=== PATIENT | female | born 1980 | race American Indian/Alaskan Native ===

== ENCOUNTER 2017-09-02 13:06 | Outpatient (CLI) | payer OTHER ==
--- NOTE | 2017-09-02 16:43 | Mammography Report ---
BILATERAL DIGITAL SCREENING MAMMOGRAM with CAD: 09/02/17 13:06:00 CLINICAL: Baseline screening. FINDINGS: The breasts are heterogeneously dense, which may obscure small masses. Left asymmetries require additional imaging.No architectural distortion or suspicious calcifications.The right breast is negative. IMPRESSION: Left asymmetries requiring further workup. BI-RADS CATEGORY: 0 -- Additional Imaging Evaluation Required RECOMMENDATION: Recall for left , spot compression CC and MLO views and left breast ultrasound if needed. ACR BI-RADS MAMMOGRAPHIC CODES: 0 = Needs additional imaging evaluation; 1 = Negative; 2 = Benign; 3 = Probably benign; 4 = Suspicious; 5 = Malignant; 6 = Known biopsy-proven malignancy COMMENT: 1. Dense breast tissue, i.e., adenosis, fibrocystic changes, etc., may obscure an underlying neoplasm. 2. Approximately 10% of cancers are not detected with mammography. 3. A negative mammography report should not delay biopsy if a clinically suspicious mass is present. COMMENT: Patient follow-up letters are generated via our [employer] application.
== END 2017-09-02 13:07 | disposition home or self-care (01) ==
LOC: MAMMO 13:06
PROVIDERS: ATTEND Advanced Practice Midwife
DX: Z12.31 Encounter for screening mammogram for malignant neoplasm of breast (principal)
CPT/HCPCS: 77067

== ENCOUNTER 2018-07-24 04:40 | Outpatient (CLI) | payer MEDICAID ==
[2018-07-24] MEDS ORDERED: LACTATED RINGERS 1,000 ML IV ONE (04:42)
[2018-07-24] MEDS ORDERED: AMPICILLIN/NS 2 GM/100 ML 2 GM/100 ML BAG IV ONE (05:16)
[2018-07-24 05:28] LABS: Bacteria,Urine 1+ /HPF (Negative); Bilirubin,Urine NEG (Negative); Blood,Urine NEG (Negative); Color,Urine Straw (Yellow); Mucus,Urine FEW /HPF; Protein,Urine <15 mg/dL mg/dL (Negative); RBC,Urine < 1.0 /HPF (0.0-6.0); Urobilinogen,Urine < 2.0 mg/dL (<2.0); WBC,Urine < 1.0 /HPF (0.0-6.0)
--- NOTE | 2018-07-24 05:43 | History and Physical Report ---
History of Present Illness Date of examination: 07/24/18 Date of admission: 07/24/2018 Chief complaint: 37 yr at 30wks gestation with 4 prior sections. 3rd was an IUFD [associated with nuchal cord]. She was here today and complaining frequent urination x3days and "burning" across the suprapubis x1day. History of present illness: 37 yr at 30wks gestation with 4 prior sections. 3rd was an IUFD [associated with nuchal cord]. She was here today and complaining frequent urination x3days and "burning" across the suprapubis x1day. Past History Past Surgical History: section - Obstetrical History Expected Date of Delivery: 10/02/18 Actual Gestation: 30 Week(s) 0 Day(s) : 5 Para: 4 Number of Pregnancies: 1 (IUFD at 32wks.) Number of Living Children: 3 Medications and Allergies Allergies Allergy/AdvReac Type Severity Reaction Status Date / Time No Known Allergies Allergy Verified 05/10/15 12:13 Home Medications Medication Instructions Recorded Confirmed Last Taken Type Tablet 1 tab PO DAILY 04/24/15 06/10/15 1 Day Ago History ~06/09/15 Ibuprofen [Motrin] 800 mg PO Q8HR PRN #30 tablet 06/10/15 Unknown Rx Lidocain2.5%/Prilocai2.5% [Emla] 1 applic TP ONCE #1 tube 06/10/15 Unknown Rx oxyCODONE /ACETAMINOPHEN [Percocet 2 tab PO Q4HR PRN #30 tab 06/10/15 Unknown Rx 5/325] Active Meds: Active Medications Betamethasone Acet/Betameth SodPhos (Celestone Soluspan) 12 mg IM Q24HR EMMIE Lactated Ringer's (Lactated Ringers) 1,000 mls @ 999 mls/hr IV BOLUS ONE Stop: 07/24/18 05:42 Ampicillin Sodium (Ampicillin/Ns 2 Gm/100 Ml) 2 gm in 100 mls @ 100 mls/hr IV ONCE ONE; Protocol Stop: 07/24/18 06:15 Sodium Chloride (Nacl 0.9% 1000 Ml) 1,000 mls @ 125 mls/hr IV DIRECT EMMIE Review of Systems All systems: negative Gastrointestinal: abdominal pain Genitourinary: pelvic pain, other (urinary frequency and lower back pains.) Musculoskeletal: leg numbness/tingling (has difficulty moving th her left thigh at the hip joint.), other - Vital Signs Vital signs: Vital Signs Pulse BP Pulse Ox 93 H 107/59 99 07/24/18 04:58 07/24/18 04:58 07/24/18 04:58 Temp Pulse Resp BP Pulse Ox 98.0 F 86 18 107/59 98 07/24/18 04:59 07/24/18 05:33 07/24/18 04:59 07/24/18 04:58 07/24/18 05:33 - Physical Exam Breasts: Positive: deferred Cardiovascular: Regular rate Lungs: Positive: Clear to auscultation Abdomen: Positive: normal appearance, soft, distention Uterus: Positive: enlarged, normal contour. Negative: tender - Obstetrical FHR: category 1 Uterine Contraction Pattern: Absent Results All other labs normal. Ultrasound: pending Assessment and Plan IMP: at 30 wks. 4 previous sections. Abdominal pains. Diff Dx; UTI, r/o abruption, kidney stones. Wound dehiscence. Plan: Admit for observations and work up. - Patient Problems (1) Previous delivery affecting , antepartum Current Visit: Yes Status: Acute (2) Abdominal pain affecting Current Visit: Yes Status: Acute (3) Abdominal pain affecting , antepartum Current Visit: Yes Status: Acute
[2018-07-24] MEDS ORDERED: NACL 0.9% 1000 ML 1,000 ML IV SCH (06:00)
[2018-07-24] MEDS: CELESTONE SOLUSPAN IM SCH (06:24)
[2018-07-24 06:37] LABS: Hematocrit 27.5 % (30.3-42.9); Hemoglobin 9.3 gm/dl (10.1-14.3); Mean Corpuscular HGB Conc 34 % (30-34); Mean Corpuscular Volume 78 fl (79-97); Platelet Count 151 K/mm3 (140-440); Red Blood Count 3.51 M/mm3 (3.65-5.03); Red Cell Distribution Width 15.3 % (13.2-15.2)
--- NOTE | 2018-07-24 08:20 | Ultrasound Report ---
PROCEDURE: US OB FOLLOW UP TECHNIQUE: Limited obstetrical ultrasound performed. HISTORY: Lower abdomen pain COMPARISON: None FINDINGS: presentation: Cephalic Placental location: Anterior. Placenta previa?No Amniotic fluid volume:Normal. TALIB: 21 cm heart rate: 137 bpm measurements: BPD: 7.6 cm-30 weeks 4 days +/- 22 days HC: 27.9 cm-30 weeks 4 days +/- 21 days AC: 27.3 cm-31 weeks 3 days +/- 21 days FL: 5.6 cm-20 weeks 2 days +/- 15 days HC/AC ratio 1.02 (1.05-1.22) Average age by ultrasound: 30 weeks 3 days with corresponding SASKIA of 09/29/2018 Gestational age by provided LMP/SASKIA (12/28/2017/10/12/2018): 28 weeks 4 days Estimated weight: 1602 g +/- 2 137 g Survey of anatomy: Not performed. Cervical length is 5 cm IMPRESSION: There is a single live intrauterine . By provided dates, gestational age is 28 weeks 4 days with SASKIA of 10/12/2018. Measurements are within 2 standard deviations. Abdominal measurement at the up per end of normal.. Current measurements as above corresponding to 30 weeks 3 days and SASKIA of 09/30/19 19. Borderline polyhydramnios with TALIB of 21 cm. Subjectively, the amount amniotic fluid does not appear abnormally large. No evidence of placental abruption or other significant finding. This document is electronically signed by Willow Meeks MD., July 24 2018 08:18:29 AM ET
--- NOTE | 2018-07-24 09:39 | Ultrasound Report ---
PROCEDURE: US OB BPP WO NON-STRESS TECHNIQUE: biophysical profile performed. HISTORY: LEFT LOWER ABDOMEN PAIN COMPARISON: None FINDINGS: There is a single live intrauterine of approximately 20 weeks 4 days according to provided SASKIA of 10/12/2018. position is cephalic. The placenta is anterior. Amniotic fluid volume is borderline increased.. TALIB is 21 cm. Biophysical profile tone: 2 Amniotic fluid: 2 breathin movements: 2 Biophysical profile score:8 out of 8 IMPRESSION: Normal biophysical profile scoring 8 out of 8. Borderline increased amniotic fluid. TALIB is 21 cm. This document is electronically signed by Willow Meeks MD., July 24 2018 09:37:36 AM ET
--- NOTE | 2018-07-24 10:31 | Ultrasound Report ---
PROCEDURE: US RENAL BILAT TECHNIQUE: Renal ultrasound HISTORY: LEFT LOWER ABDOMEN PAIN; R/O KIDNEY STONES COMPARISON: None FINDINGS: The right kidney measures 11.0 x 4.9 x 4.7 cm. Left kidney measures 11.9 x 5.6 x 6.1 cm. There is no hydronephrosis seen. There is no focal mass seen. No calculi identified sonographically. IMPRESSION: There is no significant abnormality identified. This document is electronically signed by Willow Meeks MD., July 24 2018 10:29:41 AM ET
[2018-07-24] MEDS ORDERED: LACTATED RINGERS 1,000 ML ONE (10:54)
[2018-07-24] MEDS: AMPICILLIN/NS 1 GM/50 ML 1 GM/50 ML BAG IV SCH ×3 (11:01→23:00)
[2018-07-24 15:32] LABS: Basophils % (Auto) 0.1 % (0.0-1.8); Hemoglobin 9.3 gm/dl (10.1-14.3); Lymphocytes # (Auto) 1.2 K/mm3 (1.2-5.4); Lymphocytes % (Auto) 12.9 % (13.4-35.0); Mean Corpuscular HGB Conc 33 % (30-34); Mean Corpuscular Volume 79 fl (79-97); Monocytes # (Auto) 0.1 K/mm3 (0.0-0.8); Monocytes % (Auto) 1.4 % (0.0-7.3); Platelet Count 155 K/mm3 (140-440); Red Blood Count 3.55 M/mm3 (3.65-5.03); Red Cell Distribution Width 15.1 % (13.2-15.2)
[2018-07-24 16:31] LABS: Alanine Aminotransferase 13 units/L (7-56); Albumin 2.9 g/dL (3.9-5); BUN/Creatinine Ratio 15; Blood Urea Nitrogen 6 mg/dL (7-17); Calcium 8.2 mg/dL (8.4-10.2); Hemolysis Index 9
[2018-07-24] MEDS ORDERED: BICITRA PO ONE (18:18)
[2018-07-24] MEDS ORDERED: BICITRA ONE ×2 (20:53→21:00)
[2018-07-25] MEDS: AMPICILLIN/NS 1 GM/50 ML 1 GM/50 ML BAG IV SCH ×4 (03:45→15:48)
[2018-07-25] MEDS: CELESTONE SOLUSPAN IM SCH (06:15)
--- NOTE | 2018-07-25 10:44 | Progress Note ---
Assessment and Plan - Patient Problems (1) 30 weeks gestation of Onset Date: 07/25/18 Current Visit: No Status: Acute Plan to address problem: A: IUP @ 30 1/7 weeks Abdominal pain - resolved UTI - treated P: May go home today after consultation with Dr Salinas re: leg pain (2) Abdominal pain affecting , antepartum Onset Date: 07/25/18 Current Visit: Yes Status: Resolved Subjective - Subjective Date of service: 07/25/18 Principal diagnosis: IUP @ 30 1/7 weeks; UTI Interval history: Pt is a 37 yo BF at 30 1/7wks gestation with 4 prior sections. 3rd was an IUFD [associated with nuchal cord]. She was yesterday complaining frequent urination x3 days and "burning" across the suprapubis x1day. Since observation she is feeling better, now without complaints. Patient reports: movement normal, no new complaints, no loss of fluid, no vaginal bleeding, no contractions Objective - Vital Signs Vital Signs: Vital Signs - 12hr 07/25/18 07/25/18 04:11 08:28 Pulse Rate 103 H 93 H Blood Pressure 104/54 98/50 - Exam Abdomen: Present: normal appearance, soft Uterus: Present: normal FHR: category 1 Uterine Contraction Monitor Mode: External Uterine Contraction Pattern: Absent - Labs Labs: Abnormal Labs 07/24/18 07/24/18 07/24/18 06:25 15:10 15:10 RBC 3.51 L 3.55 L Hgb 9.3 L 9.3 L Hct 27.5 L 28.0 L MCV 78 L MCH 27 L 26 L RDW 15.3 H Lymph % (Auto) 12.9 L Seg Neutrophils % 85.6 H Seg Neutrophils # 8.0 H Sodium 135 L Carbon Dioxide 20 L BUN 6 L Creatinine 0.4 L Glucose 176 H Calcium 8.2 L Total Protein 5.9 L Albumin 2.9 L Laboratory Results - last 24 hr 07/24/18 07/24/18 07/24/18 06:25 15:10 15:10 WBC 9.3 RBC 3.55 L Hgb 9.3 L Hct 28.0 L MCV 79 MCH 26 L MCHC 33 RDW 15.1 Plt Count 155 Lymph % (Auto) 12.9 L Hand % (Auto) 1.4 Eos % (Auto) 0.0 Baso % (Auto) 0.1 Lymph # 1.2 Hand # 0.1 Eos # 0.0 Baso # 0.0 Seg Neutrophils % 85.6 H Seg Neutrophils # 8.0 H Sodium 135 L Potassium 4.0 Chloride 102.9 Carbon Dioxide 20 L Anion Gap 16 BUN 6 L Creatinine 0.4 L Estimated GFR > 60 BUN/Creatinine Ratio 15 Glucose 176 H Calcium 8.2 L Total Bilirubin 0.20 AST 17 ALT 13 Alkaline Phosphatase 82 Total Protein 5.9 L Albumin 2.9 L Albumin/Globulin Ratio 1.0 RPR Nonreactive - Results US- obstetric: report reviewed (BPP 09/15; TALIB 21.0)
--- NOTE | 2018-07-25 10:55 | Discharge Summary ---
Providers - Providers Date of discharge: 07/25/18 Attending physician: FRANCIA OBANDO 07/24/18 05:49 Consult to Physician [CONS] Routine Comment: Consulting Provider: TAL FRANKS Physician Instructions: Reason For Exam: numbness to left leg Primary care physician: FRANCIA OBANDO Hospitalization Reason for admission: observation, other (IUP @ 30 0/7 weeks; Abdominal pains) Episiotomy: none Other procedures: none complications: none Discharge diagnosis: other (IUP @ 30 1/7 weeks) Pertinent studies: BPP 8/8; TALIB 21.0 Normal renal scan Hospital course: Pt is a 37 yo BF at 30 1/7wks gestation with 4 prior sections. 3rd was an IUFD [associated with nuchal cord]. She was yesterday complaining frequent urination x3 days and "burning" across the suprapubis x1day. Since observation she is feeling better, now without complaints. Condition at discharge: Good Disposition: DC-01 TO HOME OR SELFCARE - Discharge Diagnoses (1) 30 weeks gestation of Status: Acute (2) Abdominal pain affecting , antepartum Status: Resolved Plan - Discharge Medications Prescriptions: Ampicillin 500 mg PO Q6H #20 capsule - Provider Discharge Summary Activity: routine, no sex for 6 weeks, no heavy lifting 4 weeks, no strenuous exercise Diet: routine Instructions: routine Additional instructions: [] Smoking cessation referral if applicable(refer to patient education folder for contact #) [] Refer to [facility] Booklet Call your doctor immediately for: * Fever > 100.5 * Heavy vaginal bleeding ( >1 pad per hour) * Severe persistent headache * Shortness of breath * Reddened, hot, painful area to leg or breast * Drainage or odor from incision. * Keep incision clean and dry at all times and follow doctor's instructions regarding bathing/showering - Follow up plan Follow up: FRANCIA OBANDO MD [Primary Care Provider] - 7 Days
[2018-07-25 15:57] VITALS: BP 110/55
--- NOTE | 2018-07-25 17:07 | Consultation ---
History of Present Illness - [facility] Consult date: 07/25/18 Consult reason: joint pain History of present illness: 37 y/o female with c/o left leg/calf pain on and off x years, states gotten worse since . States pain located mainly at proximal portion left leg...Denies hx of trauma ... Medications and Allergies Allergies Allergy/AdvReac Type Severity Reaction Status Date / Time No Known Allergies Allergy Verified 05/10/15 12:13 Home Medications Medication Instructions Recorded Confirmed Last Taken Type Tablet 1 tab PO DAILY 04/24/15 07/24/18 1 Day Ago History ~06/09/15 Ampicillin 500 mg PO Q6H #20 capsule 07/25/18 Unknown Rx Active Meds: Active Medications Sodium Chloride (Nacl 0.9% 1000 Ml) 1,000 mls @ 125 mls/hr IV DIRECT EMMIE Last Admin: 07/24/18 06:30 Dose: 125 mls/hr Documented by: Ampicillin Sodium (Ampicillin/Ns 1 Gm/50 Ml) 1 gm in 50 mls @ 100 mls/hr IV Q4HR EMMIE; Protocol Last Admin: 07/25/18 15:48 Dose: 100 mls/hr Documented by: Physical Examination - Physical exam Narrative exam: Left lower extremity - good passive ROM at hip/knee/ankle, negative SLR, STR 4/5, mild edema, negative Francesco's sign, good capillary refill Eyes: PERRL ENT: Positive: clear oral mucosa Respiratory effort: normal Respiratory: bilateral: CTA Rhythm: regular Heart Sounds: Positive: S1 & S2 General gastrointestinal: Positive: soft, non-tender, non-distended, normal bowel sounds Integumentary: clear, warm, dry Neurologic: Positive: CNII-XII intact, moves all extremities, gait normal. Negative: focal deficits Assessment and Plan left leg pain suspect lumbar spine as source discussed treatment optionswith the patient, because of unable to perform diagnostic work-up however once baby delivered then would get xrays, mri scan, etc...
== END 2018-07-25 19:18 | disposition home or self-care (01) ==
LOC: TRG 04:40 → LD 05:40 → TRG 07-25 19:18
PROVIDERS: ATTEND Obstetrics & Gynecology
DX: O23.43 Unspecified infection of urinary tract in pregnancy, third trimester (principal); R20.0 Anesthesia of skin; O09.523 Supervision of elderly multigravida, third trimester; Z3A.30 30 weeks gestation of pregnancy
CPT/HCPCS: 36415; 76770; 76816; 76819; 80053; 81001; 85025; 85027; 86592; 86850; 86900; 86901; 87086; 87116; 96365; 96366; 96372; J0290; J0702; J7030; J7120

== ENCOUNTER 2018-09-21 01:08 | Inpatient (IN) | payer MEDICAID ==
[2018-09-21] MEDS ORDERED: LACTATED RINGERS 1,000 ML ONE ×2 (02:37→04:10)
[2018-09-21] MEDS ORDERED: LACTATED RINGERS 1,000 ML IV SCH (08:00)
[2018-09-21 11:26] LABS: Basophils % (Auto) 0.6 % (0.0-1.8); Eosinophils # (Auto) 0.1 K/mm3 (0.0-0.4); Eosinophils % (Auto) 0.8 % (0.0-4.3); Lymphocytes # (Auto) 1.5 K/mm3 (1.2-5.4); Lymphocytes % (Auto) 20.6 % (13.4-35.0); Mean Corpuscular HGB Conc 32 % (30-34); Monocytes # (Auto) 0.6 K/mm3 (0.0-0.8); Platelet Count 185 K/mm3 (140-440); Red Blood Count 4.01 M/mm3 (3.65-5.03); Red Cell Distribution Width 19.2 % (13.2-15.2)
[2018-09-21 11:29] LABS: Mean Corpuscular Volume 70 fl (79-97)
[2018-09-21] MEDS ORDERED: REGLAN IV NR (11:30)
[2018-09-21] MEDS: LACTATED RINGERS 1,000 ML IV SCH ×2 (11:30→14:25)
[2018-09-21] MEDS ORDERED: ANCEF/STERILE WATER 2 GM/20 ML 2 GM/20 ML SYRINGE IV NR (11:30)
[2018-09-21] MEDS ORDERED: BICITRA PO NR (11:30)
[2018-09-21] MEDS ORDERED: PEPCID IV NR (11:30)
[2018-09-21] MEDS ORDERED: PITOCin/NS 20 UNIT/1000ML DRIP 20 UNITS/1,000 ML BAG IV SCH ×2 (12:00→17:00)
--- NOTE | 2018-09-21 12:44 | History and Physical Report ---
History of Present Illness Date of examination: 09/21/18 Date of admission: 09/21/18 03:38 Chief complaint: SIUP at 38 weeks gestation in labor. Previous C/section x 4. Unwanted fertility. History of present illness: Patient is a 38 year old , LMP 01/04/18, EDC 10/05/18 at 38 weeks gestation who presented to triage complaining of having contractions since ye which worsened during the night. She says that her left lower abdomen is very tender with a pulling sensation. She denies any fluid leakage or bleeding. She reports good movement. She is a patient of [facility] who had been co-managed with [facility] for a history of demise at 32 weeks. Her records are not available. She says that she went to [facility] yesterday and had a reactive NST and BPP. She had 4 previous C/sections including a 32-week delivery for demise. tracing is CAT1. Cervix is closed/80%/-2. She received IV bolus after which the contractions subsided. She began to contract again an hour later. The decision was made to admit her and proceed with repeat C/section. She also wants tubal ligation. Past History Past Surgical History: section Family/Genetic History: none Social history: no significant social history - Obstetrical History Expected Date of Delivery: 10/05/18 Actual Gestation: 38 Week(s) 0 Day(s) : 5 Para: 3 Number of Pregnancies: 1 Number of Living Children: 3 Medications and Allergies Allergies Allergy/AdvReac Type Severity Reaction Status Date / Time No Known Allergies Allergy Verified 05/10/15 12:13 Home Medications Medication Instructions Recorded Confirmed Last Taken Type Tablet 1 tab PO DAILY 04/24/15 07/24/18 1 Day Ago History ~06/09/15 Ampicillin 500 mg PO Q6H #20 capsule 07/25/18 Unknown Rx Ibuprofen [Motrin] 800 mg PO Q8HR PRN #30 tablet 09/21/18 Unknown Rx oxyCODONE /ACETAMINOPHEN [Percocet 1 tab PO Q4HR #20 tab 09/21/18 Unknown Rx 5/325] Active Meds: Active Medications Citric Acid/Sodium Citrate (Bicitra) 30 ml PO ONCE NR Stop: 09/21/18 15:00 Famotidine (Pepcid) 20 mg IV ONCE NR Stop: 09/21/18 16:00 Lactated Ringer's (Lactated Ringers) 1,000 mls @ 125 mls/hr IV DIRECT EMMIE Oxytocin/Sodium Chloride (Pitocin/Ns 20 Unit/1000ml Drip) 20 units in 1,000 mls @ 0 mls/hr IV TITR EMMIE Lactated Ringer's (Lactated Ringers) 1,000 mls @ 2,250 mls/hr IV PREOP EMMIE Stop: 09/22/18 12:27 Cefazolin Sodium (Ancef/Sterile Water 2 Gm/20 Ml) 2 gm in 20 mls @ 80 mls/hr IV PREOP NR; Protocol Stop: 09/21/18 16:00 Metoclopramide HCl (Reglan) 10 mg IV ONCE NR Stop: 09/21/18 16:00 - Vital Signs Vital signs: Vital Signs Pulse BP 75 98/56 09/21/18 01:31 09/21/18 01:31 Temp Pulse Resp BP Pulse Ox 98.3 F 82 100/55 09/21/18 08:39 09/21/18 07:24 09/21/18 07:24 - Physical Exam Cardiovascular: Normal S1, Normal S2 Vulva: both: normal Deep Tendon Reflex Grade: Normal +2 - Obstetrical FHR: category 1 Uterine Contraction Monitor Mode: External Cervical Dilatation: 0 Cervical Effacement Percentage: 80 station: -2 Uterine Contraction Pattern: Irregular Uterine Contraction Intensity: Moderate Results Result Diagrams: 09/21/18 11:00 Abnormal lab results 09/21/18 Range/Units 11:00 Hgb 9.0 L (10.1-14.3) gm/dl Hct 28.0 L (30.3-42.9) % MCV 70 L (79-97) fl MCH 23 L (28-32) pg RDW 19.2 H (13.2-15.2) % [place] % (Auto) 8.0 H (0.0-7.3) % All other labs normal. Assessment and Plan - Patient Problems (1) 38 weeks gestation of Current Visit: Yes Status: Acute (2) Previous section Current Visit: Yes Status: Acute Plan to address problem: Admit to labor floor. Routine preop labs. IV hydration. Keep NPO. monitoring. Patient was counselled for repeat C/section. Risks, benefits, and alternatives of the procedure were discussed in detail with the patient which included but not limited to the risk of infection, hemorrhage requiring blood transfusion, injury to the bowel or bladder and blood vessels, risk of failure of the tubal ligation which can result in unwanted pregnancies in the future. The patient expressed understanding, her questions were answered, and she gave informed consent. Anesthesia notified. (3) Unwanted fertility Current Visit: Yes Status: Acute (4) Advanced maternal age (AMA) in Current Visit: Yes Status: Acute
[2018-09-21] MEDS ORDERED: DEXMEDETOMIDINE IV ONE (12:45)
[2018-09-21] MEDS ORDERED: ZOFRAN ONE (14:44)
--- NOTE | 2018-09-21 15:08 | Anesthesia Consultation ---
Anesthesia Consult and Med Hx Date of service: 09/21/18 - Airway Anesthetic Teeth Evaluation: Good ROM Head & Neck: Adequate Mental/Hyoid Distance: Adequate Mallampati Class: Class II Intubation Access Assessment: Good - Pulmonary Exam CTA: Yes - Cardiac Exam Cardiac Exam: RRR - Pre-Operative Health Status ASA Pre-Surgery Classification: ASA2 Proposed Anesthetic Plan: Spinal - Pulmonary Hx Asthma: No COPD: No Hx Pneumonia: No - Cardiovascular System Hx Hypertension: No - Central Nervous System Hx Seizures: No Hx Psychiatric Problems: No - Endocrine Hx Renal Disease: No Hx End Stage Renal Disease: No Hx Hypothyroidism: No Hx Hyperthyroidism: No - Hematic Hx Anemia: No Hx Sickle Cell Disease: No - Other Systems Hx Alcohol Use: No
[2018-09-21] MEDS ORDERED: NARCAN 0.4 MG/1 ML IV PRN ×2 (15:09→16:28)
[2018-09-21] MEDS ORDERED: PHENERGAN PO PRN (15:09)
[2018-09-21] MEDS ORDERED: ZOFRAN IV PRN ×2 (15:09→16:28)
[2018-09-21] MEDS ORDERED: PHENERGAN PR PRN ×2 (15:09→16:28)
[2018-09-21] MEDS ORDERED: DILAUDID IV PRN ×2 (15:09)
--- NOTE | 2018-09-21 15:09 | Anesthesia Day of Surgery ---
Anesthesia Day of Surgery - Day of Surgery Patient Examined: Yes Patient H&P Reviewed: Yes Patient is NPO: Yes
[2018-09-21] MEDS ORDERED: METHERGINE IM ONE (15:26)
[2018-09-21] MEDS ORDERED: TORADOL ONE (15:29)
[2018-09-21] MEDS ORDERED: DILAUDID ONE (15:29)
[2018-09-21] MEDS ORDERED: BENADRYL ONE (15:29)
[2018-09-21] MEDS ORDERED: SODIUM CHLORIDE FLUSH SYRINGE 10 ML IV SCH (16:00)
[2018-09-21] MEDS ORDERED: MORPHINE IV PRN (16:28)
[2018-09-21] MEDS ORDERED: TORADOL IV PRN (16:28)
[2018-09-21] MEDS ORDERED: TYLENOL PO PRN (16:28)
[2018-09-21] MEDS ORDERED: SENOKOT PO PRN (16:28)
[2018-09-21] MEDS ORDERED: TUCKS PAD TP PRN (16:28)
[2018-09-21] MEDS ORDERED: MILK OF MAGNESIA PO PRN (16:28)
[2018-09-21] MEDS ORDERED: ANUCORT-HC PR PRN (16:28)
[2018-09-21] MEDS ORDERED: LANSINOH TP PRN (16:28)
--- NOTE | 2018-09-21 16:57 | Operative Report ---
Operative Report Operative Report: Preoperative diagnosis 1. SIUP at 38 weeks gestation in labor. 2. Previous C/section x 4. 3. Advanced maternal age. 4. Unwanted fertility. Postoperative diagnosis: 1. SIUP at 38 weeks gestation in labor. 2. Previous C/section x 4. 3. Advanced maternal age. 4. Unwanted fertility. 5. Uterine scar rupture. Procedure: 1. Repeat low-transverse section. 2. Bilateral tubal ligation via Pemoroy method. 3. Lysis of omental adhesions from the anterior fascia. Surgeon: Dr. Zamudio Executive Consultant: none Anesthesia: spinal IVF: RL 1000 cc EBL: 700 cc Urine: 100 cc clear Complications: none. Intraoperative findings: 1. A male infant found in an ELIZABETH position, delivered at 3:16 PM, Apgars 8 at 1 minute and 9 at 5 minutes, weight 7 lbs. 6 oz. 2. Normal fallopian tubes and ovaries bilaterally. Procedure details: Risks, benefits, and alternatives of the procedure were discussed in detail with the patient which included but not limited to the risk of infection, hemorrhage requiring blood transfusion, injury to the bowel or bladder and blood vessels, risk of tubal ligation to fail to prevent which can result in unwanted pregnancies in the future. The patient expressed understanding, her questions were answered, and she gave informed consent. The patient was taken to the operating room with an IV fluid infusing Ringers lactate. In the operating room, she was placed in a sitting position and given spinal anesthesia. She was then placed in a dorsal supine position with a leftwa rd tilt. Long catheter in Venodyne boots were placed. The abdomen was washed and she was prepared and draped in usual sterile fashion. After confirming adequate anesthesia, the Pfannenstiel skin incision was made in the lower abdomen about 2 cm above the pubic symphysis using the scalpel. This incision was carried down to the underlying fascia using the Bovie. The fascia was opened bilaterally in a curvilinear fashion using the Bovie. 2 straight Kocker clamps were used to grasp the upper edge of the fascia from which the underlying rectus abdominis muscles was dissected off using the Bovie. A similar procedure was done with the lower edge of the fascia to dissect the underlying rectus abdominis muscle. The muscle was bluntly from the midline by pulling. The parietal peritoneum was grasped with 2 hemostat clamps and entered sharply using Metzenbaum scissors. A quick survey of the anatomy revealed multiple omental adhesions to the anterior fascia and peritoneum, a gravid uterus which is ruptured along the previous scar with bulging amniotic membranes, normal fallopian tubes and ovaries bilaterally. A bladder flap was created. Silvano'O retractor was placed in the incision for proper visualization. The ruptured uterine segment was extended bilaterally in a curvilinear fashion using bandage scissors. The amniotic sac was ruptured and there was copious amount of clear amniotic fluids. The was found in an ELIZABETH position, the head was delivered atraumatically followed by the delivery of the shoulders and the rest of the body at 3:16 PM. 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 The infant was a male, Apgars were 8 at 1 minute and 9 at 5 minutes, weight was 7 pounds and 6 ounces. Cord blood was c ollected. The placenta was delivered manually and it was complete with a three- vessel cord. The uterine cavity was cleaned of clots and debris using dry lap sponges. The uterine incision was repaired in a running locked fashion using 0 Vicryl sutures. A second layer of imbrication was placed. The gutters were cleaned of clots and debris using dry lap sponges. Attention was turned to the right Fallopian tube which was grasped with [place] clamps and a 2-cm segment was suture ligated using 0 chromic suture. A similar procedure was done with the left Fallopian tube where a 2-cm segment was suture ligated. Both segments were sent to pathology. After confirming adequate hemostasis, the instruments were removed from the abdominal cavity. The rectus muscle was reapproximated in an interrupted fashion using 0 Vicryl sutures. The fascia was closed in a running fashion using 0 Vicryl sutures. The sucutaneous adipose layer was closed with 2.0 chromic suture. The skin was closed in a subcutaneous fashion with 4 vicryl on a Devin needle. Sterile dressing was placed. The counts of laps, needles, sponges, and instruments were correct 2. The patient tolerated the procedure well, she was taken to the recovery room in a stable condition.
[2018-09-21] MEDS ORDERED: SODIUM CHLORIDE FLUSH SYRINGE 10 ML IV NR (17:00)
--- NOTE | 2018-09-21 19:11 | Post Anesthesia Evaluation ---
- Post Anesthesia Evaluation Patient Participated: Yes Airway Patent: Yes Stable Respiratory Function: Yes Nausea/Vomiting: No Temp > 96.8F: Yes Pain Manageable: Yes Adequeate Hydration: Yes Anesthesia Complications: No Block Receding Appropriately: Yes Patient on Ventilator: No
[2018-09-21] MEDS: MORPHINE IV PRN (20:18)
[2018-09-21] MEDS: TORADOL IV PRN (22:14)
[2018-09-22] MEDS: PERCOCET 5/325 PO PRN ×3 (02:47→20:01)
[2018-09-22] MEDS: MORPHINE IV PRN (03:39)
[2018-09-22 06:16] LABS: Hematocrit 26.4 % (30.3-42.9); Hemoglobin 8.4 gm/dl (10.1-14.3)
[2018-09-22 06:47] LABS: Hepatitis C Virus Antibody Non-Reactive (NonReactive)
[2018-09-22 07:10] LABS: Hepatitis B Surface Antigen Non-Reactive (Negative)
[2018-09-22] MEDS: TORADOL IV PRN (08:46)
--- NOTE | 2018-09-22 11:39 | Progress Note ---
Assessment and Plan A: POD#1 s/p Repeat c/s with BTL Pain well controlled Eating, drinking and ambulating without difficulty Asymptomatic anemia; Ferrous Sulfate 325mg PO BID VSS Stable P: Routine PP/PO orders Encouraged ambulation in room Abdominal binder ordered Reviewed and encouraged incentive spirometer use Continue Ferrous sulfate Anticipate discharge home in 24-48 hours Subjective - Subjective Date of service: 09/22/18 Principal diagnosis: POD#1 s/p Repeat c/s with BTL Interval history: See H&P and Operative note Patient reports: appetite normal, voiding normally, pain well controlled, flatus, ambulating normally, no bowel movement Objective - Vital Signs Latest vital signs: Vital Signs Temp Pulse Resp BP BP Pulse Ox 09/22/18 07:53 98.3 F 79 18 104/52 97 09/22/18 04:40 98.0 F 85 20 100/45 95 09/22/18 00:32 97.8 F 95 H 20 94/58 97 09/21/18 18:45 97.9 F 73 18 112/53 98 09/21/18 17:30 83 13 124/55 100 09/21/18 17:25 72 15 120/42 100 09/21/18 17:10 76 11 L 120/56 100 09/21/18 16:55 75 16 117/59 100 09/21/18 16:40 74 13 114/50 100 09/21/18 16:35 71 14 115/54 100 09/21/18 16:30 97.6 F 85 17 115/46 99 Intake and Output 09/21/18 09/22/18 09/22/18 23:59 07:59 15:59 Intake Total 200 Output Total 900 900 Balance -700 -900 Intake: IV 200 Output: Urine 900 900 Indwelling Catheter 900 Uretheral (Long) 400 Other: Total, Output Amount 900 - Exam Breasts: Present: normal, Cardiovascular: Present: Regular rate, Normal S1, Normal S2, No murmurs Lungs: Present: Clear to auscultation, Normal air movement Abdomen: Present: normal appearance, soft, tenderness (as expected Post-op), normal bowel sounds. Absent: distention Vulva: both: normal Uterus: Present: firm, fundal height at umbilicus Extremities: Present: normal Deep Tendon Reflex Grade: Normal +2 Incision: Present: normal, dry, intact, dressed (Pressure dressing CDI) - Labs Labs: Abnormal lab results 09/22/18 Range/Units 05:29 Hgb 8.4 L (10.1-14.3) gm/dl Hct 26.4 L (30.3-42.9) %
[2018-09-22] MEDS: FEOSOL PO SCH (12:34)
[2018-09-22] MEDS: PRENATAL VITAMIN PO SCH (12:34)
[2018-09-22] MEDS: MYLICON PO PRN ×2 (13:38→20:01)
[2018-09-22] MEDS: IBUPROFEN PO PRN ×2 (15:19→22:19)
[2018-09-23] MEDS: PERCOCET 5/325 PO PRN ×2 (02:40→14:14)
[2018-09-23] MEDS: IBUPROFEN PO PRN ×3 (03:49→20:44)
[2018-09-23] MEDS ORDERED: INFED IM ONE (08:57)
--- NOTE | 2018-09-23 10:32 | Progress Note ---
Assessment and Plan - Patient Problems (1) Status post repeat low transverse section Current Visit: Yes Status: Acute Plan to address problem: Continue routine PP orders Keep incision clean and dry Anticipate d/c home tomorrow (2) History of bilateral ligation of fallopian tubes Current Visit: Yes Status: Acute (3) Anemia Current Visit: Yes Status: Acute Qualifiers: Anemia type: iron deficiency Plan to address problem: Asymptomatic Infed 100 mg IM x 1 dose Continue daily oral iron supplementation Increase iron rich foods into diet Subjective - Subjective Date of service: 09/23/18 Principal diagnosis: POD#2 s/p Repeat c/s with BTL Interval history: See admission H & P, OB operative report and PP progress notes Patient reports: appetite normal, voiding normally, pain well controlled, flatus, ambulating normally, no bowel movement : doing well, bottle feeding Objective - Vital Signs Latest vital signs: Vital Signs Temp Pulse Resp BP BP Pulse Ox 09/23/18 07:38 97.8 F 70 18 102/50 09/23/18 01:05 98.4 F 80 20 103/51 97 09/22/18 22:26 77 108/54 100 09/22/18 16:42 97.8 F 77 18 105/57 97 Intake and Output 09/22/18 09/23/18 09/23/18 23:59 07:59 15:59 Intake Total 720 720 Output Total 700 Balance 20 720 Intake: Oral 480 720 Intake, Free Water 240 Output: Urine 700 Void 700 Other: Total, Intake Amount 240 480 Total, Output Amount 700 # Voids Void 1 1 - Exam Breasts: Present: normal Cardiovascular: Present: Regular rate Lungs: Present: Normal air movement Abdomen: Present: soft, tenderness, normal bowel sounds Uterus: Present: firm, fundal height below umbilicus (U-1) Extremities: Present: normal Deep Tendon Reflex Grade: Normal +2 Incision: Present: dry, intact
--- NOTE | 2018-09-23 10:36 | Discharge Summary ---
Providers - Providers Date of Admission: 09/21/18 03:38 Date of discharge: 09/24/18 (1200) Attending physician: FRANCIA OBANDO Primary care physician: FRANCIA OBANDO Hospitalization Reason for admission: section (with BTL), IUP at term Delivery: Procedure: section Episiotomy: none Laceration: none Incision: dry, intact Other procedures: tubal ligation complications: none Discharge diagnosis: IUP at term delivered (via repeat C/S with BTL), other (Anemia) baby: male Hospital course: See admission H & P, OB operative report and PP progress notes Condition at discharge: Stable Disposition: DC- TO HOME OR SELFCARE - Discharge Diagnoses (1) Status post repeat low transverse section Status: Acute (2) History of bilateral ligation of fallopian tubes Status: Acute (3) Anemia Status: Acute Qualifiers: Anemia type: iron deficiency Plan - Discharge Medications Prescriptions: Ibuprofen [Motrin] 800 mg PO Q8HR PRN #30 tablet PRN Reason: Pain, Moderate (4-6) oxyCODONE /ACETAMINOPHEN [Percocet 5/325] 1 tab PO Q4HR #20 tab - Provider Discharge Summary Activity: routine, no sex for 6 weeks, no heavy lifting 4 weeks, no strenuous exercise Diet: routine Instructions: routine Additional instructions: [] Smoking cessation referral if applicable(refer to patient education folder for contact #) [] Refer to [facility] Booklet Call your doctor immediately for: * Fever > 100.5 * Heavy vaginal bleeding ( >1 pad per hour) * Severe persistent headache * Shortness of breath * Reddened, hot, painful area to leg or breast * Drainage or odor from incision. * Keep incision clean and dry at all times and follow doctor's instructions regarding bathing/showering - Follow up plan Follow up: MICHELLE MORE MD [Staff Physician] - 7 Days
[2018-09-23] MEDS: FEOSOL PO SCH (11:19)
[2018-09-23] MEDS: PRENATAL VITAMIN PO SCH (11:19)
[2018-09-24] MEDS: IBUPROFEN PO PRN ×3 (02:55→18:30)
[2018-09-24] MEDS: PRENATAL VITAMIN PO SCH (09:38)
[2018-09-24] MEDS: FEOSOL PO SCH (09:38)
[2018-09-24 16:38] VITALS: BP 122/39
== END 2018-09-24 18:45 | disposition home or self-care (01) | DRG 765 ==
LOC: TRG 01:08 → LD 03:38 → OB 18:52
PROVIDERS: ADMIT Obstetrics & Gynecology; ATTEND Obstetrics & Gynecology
PROC: 10D00Z1 Extraction of Products of Conception, Low, Open Approach (ICD-10-PCS; principal; 2018-09-21)
PROC: 0UB70ZZ Excision of Bilateral Fallopian Tubes, Open Approach (ICD-10-PCS; 2018-09-21)
DX: O34.211 Maternal care for low transverse scar from previous cesarean delivery (principal); O71.1 Rupture of uterus during labor; Z37.0 Single live birth; Z3A.38 38 weeks gestation of pregnancy; O90.81 Anemia of the puerperium; D50.9 Iron deficiency anemia, unspecified; O99.62 Diseases of the digestive system complicating childbirth; K66.0 Peritoneal adhesions (postprocedural) (postinfection)
CPT/HCPCS: 36415; 80074; 82962; 85014; 85018; 85025; 86592; 86850; 86900; 86901; 88302; G0378; J0690; J1170; J1200; J1750; J1885; J2210; J2270; J2405; J2590; J2765; J3490; J7120